=== PATIENT | female | born 1950 | race American Indian/Alaskan Native ===

== ENCOUNTER 2016-07-02 13:43 | Outpatient (CLI) | payer MEDICAID ==
--- NOTE | 2016-07-02 16:01 | Magnetic Resonance Report ---
MRI BRAIN WITH AND WITHOUT CONTRAST INDICATION: Severe headache. History of bleed. COMPARISON: 03/16/2014 MRI and 06/28/[address] FINDINGS: Multiplanar and multisequence MRI of the brain utilizing 12 ml Multihance intravenously again demonstrates age appropriate ventricles and sulci with mild bilateral parietal sulcal prominence/enlargement and along the vertex. No acute infarct, hemorrhage, mass effect or midline shift. No abnormal extra axial masses or fluid collections. Normal major intracranial vascular flow-voids. Approximately 9 mm focal heterogeneous enhancement/blush in the robbie on the left is stable without associated mass effect, also visible slightly T2 hyperintense precontrast as on axial series 6, image 9. Otherwise normal posterior fossa with symmetric seventh and eighth nerve complexes and preserved basilar cisterns. Unremarkable eye globes. Mild nasal septal deviation. Mild, left more than right, ethmoid and maxillary sinusitis may be present. Otherwise clear imaged paranasal sinuses and mastoid air cells. Normal midline structures without evidence of Chiari malformation. 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 Thank you for the opportunity to participate in this patient's care.
== END 2016-07-02 13:44 | disposition home or self-care (01) ==
LOC: MRI 13:43
PROVIDERS: ATTEND Internal Medicine Hematology & Oncology
DX: C50.411 Malignant neoplasm of upper-outer quadrant of right female breast (principal); R51 Headache; M25.512 Pain in left shoulder; J34.2 Deviated nasal septum; J32.0 Chronic maxillary sinusitis; J32.2 Chronic ethmoidal sinusitis
CPT/HCPCS: 70553; A9577

== ENCOUNTER 2017-01-13 09:07 | Emergency (ER) | payer OTHER, MEDICAID ==
--- NOTE | 2017-01-13 09:48 | XRay Report ---
ROUTINE CHEST, TWO VIEWS: HISTORY: chest pain. The trachea, heart, mediastinal contour, lung salcido and bony thorax are unremarkable. IMPRESSION: Unremarkable chest x-ray.
[2017-01-13 12:31] VITALS: BP 117/71
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
[2017-01-13] MEDS ORDERED: TYLENOL PO ONE (13:31)
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
[2017-01-13] MEDS ORDERED: NAPROSYN PO ONE (14:30)
== END 2017-01-13 14:26 | disposition home or self-care (01) ==
LOC: ED 09:07
DX: G44.319 Acute post-traumatic headache, not intractable (principal); M25.512 Pain in left shoulder; Z85.3 Personal history of malignant neoplasm of breast; E80.0 Hereditary erythropoietic porphyria; Z88.8 Allergy status to other drugs, medicaments and biological substances; V89.2XXA Person injured in unspecified motor-vehicle accident, traffic, initial encounter; Y92.488 Other paved roadways as the place of occurrence of the external cause; Y93.89 Activity, other specified; Y99.9 Unspecified external cause status
CPT/HCPCS: 70450; 71020

== ENCOUNTER 2017-03-08 09:21 | Outpatient (CLI) | payer MEDICAID ==
[2017-03-08 09:47] LABS: Basophils % (Auto) 0.8 % (0.0-1.8); Hematocrit 40.5 % (30.3-42.9); Hemoglobin 13.2 gm/dl (10.1-14.3); Mean Corpuscular HGB Conc 33 % (30-34); Mean Corpuscular Hemoglobin 27 pg (28-32); Mean Corpuscular Volume 83 fl (79-97); Platelet Count 319 K/mm3 (140-440); Red Blood Count 4.86 M/mm3 (3.65-5.03); Red Cell Distribution Width 14.7 % (13.2-15.2); White Blood Count 4.2 K/mm3 (4.5-11.0)
[2017-03-08 10:08] LABS: Alanine Aminotransferase 20 units/L (7-56); Albumin 4.3 g/dL (3.9-5); Albumin/Globulin Ratio 1.4 %; Alkaline Phosphatase 83 units/L (35-129); Anion Gap 18 mmol/L; BUN/Creatinine Ratio 13; Blood Urea Nitrogen 8 mg/dL (7-17); Calcium 9.1 mg/dL (8.4-10.2); Carbon Dioxide 30 mmol/L (22-30); Chloride 96.1 mmol/L (98-107); Cholesterol 156 mg/dL (50-199); Glucose 113 mg/dL (65-100); HDL Cholesterol 53 mg/dL (40-59); LDL Cholesterol,Direct 84 mg/dL (50-130); Potassium 3.6 mmol/L (3.6-5.0); Sodium 140 mmol/L (137-145); Total Protein 7.3 g/dL (6.3-8.2); Triglycerides 95 mg/dL (2-149)
[2017-03-15 13:27] LABS: Vitamin D, 25-OH, Total 50 ng/mL (30-100)
== END 2017-03-08 09:22 | disposition home or self-care (01) ==
LOC: LAB 09:21
DX: E11.42 Type 2 diabetes mellitus with diabetic polyneuropathy (principal); I10 Essential (primary) hypertension; E55.9 Vitamin D deficiency, unspecified; E78.2 Mixed hyperlipidemia; Z79.899 Other long term (current) drug therapy
CPT/HCPCS: 36415; 80053; 80061; 82306; 83036; 85025

== ENCOUNTER 2018-08-07 09:07 | Observation (INO) | payer MEDICAID, MEDICARE, SELFPAY ==
--- NOTE | 2018-08-07 09:34 | Emergency Department Report ---
HPI - General Chief Complaint: Allergic Reaction Time Seen by Provider: 08/07/18 09:34 - HPI HPI: 68-year-old female with a past medical history of DVT, hypertension, and breast cancer currently in remission since the hospital with allergic reaction 2 days. 2 nights ago patient developed hives. Last night she developed swelling to her lip and right side of her face. Patient has taken Benadryl the last 2 nights. She denies shortness of breath, wheezing, tongue swelling, voice changes, or difficulty speaking. She states she has had shrimp and seafood the last 2 nights but denies a previous allergy to seafood. She is also on losartan for hypertension and denies a previous history of angioedema. ED Past Medical Hx - Past Medical History Previous Medical History?: Yes Hx Hypertension: Yes Hx CVA: No Hx Deep Vein Thrombosis: Yes Hx Psychiatric Treatment: No Additional medical history: breast cancer, high cholesterol - Surgical History Past Surgical History?: Yes Hx Breast Surgery: Yes (BR BX W/BX OF LYMPH NODES 2013;) Additional Surgical History: bilateral mastectomy - Social History Smoking Status: Never Smoker Substance Use Type: None - Medications Home Medications: Home Medications Medication Instructions Recorded Confirmed Last Taken Type Gabapentin 300 mg PO BID 10/12/13 01/13/17 01/12/17 History Simvastatin 40 mg PO DAILY 10/12/13 01/13/17 12/12/13 18:30 History HYDROcodone/APAP 5-325 [[place] 1 each PO Q4HR PRN #20 tablet 12/13/13 Unknown Rx 5/325] Acetaminophen 500 mg PO Q6HR PRN #20 tablet 01/13/17 Unknown Rx Cyclobenzaprine HCl [Flexeril 5 MG 5 mg PO TID PRN #20 tab 01/13/17 Unknown Rx TAB] Furosemide [Lasix] 40 mg PO 01/13/17 01/12/17 History ED Review of Systems ROS: Stated complaint: ALLERGIC REACTION Other details as noted in HPI Comment: All other systems reviewed and negative Physical Exam - Physical Exam Vital Signs: Vital Signs 08/07/18 08/07/18 09:25 09:27 Temperature 98.0 F 98.2 F Pulse Rate 91 H 90 Respiratory 16 16 Rate Blood Pressure 127/84 Blood Pressure 127/64 [Left] O2 Sat by Pulse 97 Oximetry Physical Exam: General: No limitations, patient is alert in no acute distress Head exam: Atraumatic, normocephalic Eyes exam: Normal appearance, pupils equal reactive to light, extraocular movements intact ENT: Moist mucous membrane, right sided upper and lower lip swelling with some mild swelling to the right cheek area of the face. No tongue swelling, normal posterior pharynx Neck exam: Normal inspection, full range of motion, no meningismus nontender Respiratory exam: Clear to auscultation bilateral, no wheezes, rales, crackles Cardiovascular: Normal rate and rhythm, normal heart sounds Abdomen: Soft, nondistended, and nontender, with normal bowel sounds, no rebound, or guarding Extremity: Full range of motion normal inspection no deformity Back: Normal Inspection, full range of motion, no tenderness Neurologic: Alert, oriented x3, cranial nerves intact, no motor or sensory deficit Psychiatric: normal affect, normal mood Skin: Warm, dry, intact, no rash ED Course Vital Signs 08/07/18 08/07/18 09:25 09:27 Temperature 98.0 F 98.2 F Pulse Rate 91 H 90 Respiratory 16 16 Rate Blood Pressure 127/84 Blood Pressure 127/64 [Left] O2 Sat by Pulse 97 Oximetry ED Medical Decision Making - Medical Decision Making plan to admit pt to hospital for obs due to persistant and unchanged lip and facial swelling despite meds ddx angioedema vs allergic reaction basic labs ordered and pending hospitalist informed to admit - Differential Diagnosis angioedema, allergic reaction Critical Care Time: No Critical care attestation.: If time is entered above; I have spent that time in minutes in the direct care of this critically ill patient, excluding procedure time. ED Disposition Clinical Impression: Angioedema Disposition: OP ADMIT IP TO THIS HOSP Is pt being admited?: Yes Condition: Stable Time of Disposition: 13:44
[2018-08-07] MEDS ORDERED: BENADRYL IV ONE (09:38)
[2018-08-07] MEDS ORDERED: SOLU-Medrol IV ONE (09:39)
[2018-08-07] MEDS ORDERED: PEPCID IV ONE (09:39)
--- NOTE | 2018-08-07 14:07 | History and Physical Report ---
History of Present Illness Chief complaint: My face and lips are swollen History of present illness: 68 YO Female with HTN, BrCa, DVT, HLD presents to ED for evaluation. Pt states that she has experienced swelling of her lips and the right side of her face. Pt states that she developed "hives" 2 days ago shortly after eating seafood, Pt treated her symptoms with OTC Benadryl. Pt also reports the onset of Lip and fac ial swelling overnight with persistent symptoms over the same time frame. Pt transported to [facility] in private vehicle. Pt seen and evaluated in ED and found to have Angioedema. Pt admitted to [facility] and treated with IV steroid therapy. Pt denies fever, chills, CP, Palpitations, shortness of breath, tongue swelling, difficulty swallowing, drooling, voice changes, cough, syncope, skin rash, or recent ill contacts. Past History Past Medical History: cancer, DVT, hypertension, hyperlipidemia Past Surgical History: mastectomy, Other (Lymph node biopsy) Social history: , lives with family. denies: smoking, alcohol abuse, prescription drug abuse Family history: hypertension Medications and Allergies Allergies Allergy/AdvReac Type Severity Reaction Status Date / Time zinc oxide Allergy Mild Rash Verified 07/02/16 13:44 tramadol Allergy Seizure Verified 01/13/17 10:00 Home Medications Medication Instructions Recorded Confirmed Last Taken Type Simvastatin 40 mg PO DAILY 10/12/13 08/07/18 12/12/13 18:30 History Losartan/Hydrochlorothiazide 1 tab PO DAILY 08/07/18 08/07/18 Unknown History [Losartan-Hctz 50-12.5 mg Tab] Lubiprostone (Nf) [Amitiza (Nf)] 24 mcg PO BID 08/07/18 08/07/18 Unknown History Metformin HCl 500 mg PO DAILY 08/07/18 08/07/18 Unknown History Review of Systems Constitutional: no weight loss, no weight gain, no fever, no anorexia, no fatigue, no weakness, no malaise Ears, nose, mouth and throat: other (Lip and facial swelling), no ear pain, no ear discharge, no tinnitis, no decreased hearing, no sinus pressure, no hoarseness, no sore throat Breasts: other (B Mastectomy) Cardiovascular: no chest pain, no orthopnea, no palpitations, no rapid/irregular heart beat, no edema Respiratory: no cough, no cough with sputum, no excessive sputum, no hemoptysis Gastrointestinal: no abdominal pain, no nausea, no vomiting, no change in bowel habits, no hematemesis Genitourinary Female: no pelvic pain, no flank pain, no menorrhagia, no dysuria, no urinary frequency, no urgency Rectal: no pain, no incontinence, no bleeding Musculoskeletal: no neck stiffness, no neck pain, no arm numbness/tingling, no low back pain, no shooting leg pain Integumentary: no rash, no redness, no sores, no wounds, no jaundice, no boils Neurological: no head injury, no transient paralysis, no paralysis, no weakness, no numbness, no seizures, no syncope, no ataxia Psychiatric: no anxiety, no memory loss, no change in sleep habits, no sleep disturbances, no insomnia, no hypersomnia, no change in appetite, no suicidal ideation Endocrine: no cold intolerance, no heat intolerance, no polyphagia, no excessive thirst, no polydipsia, no polyuria, no nocturia, no excessive sweating, no flushing Hematologic/Lymphatic: no easy bruising, no easy bleeding, no lymphadenopathy, no lymphedema Allergic/Immunologic: no urticaria, no allergic rhinitis, no wheezing, no persistent infections, no anaphylaxis, no angioedema Exam - Constitutional Vitals: Temp Pulse Resp BP Pulse Ox 98.2 F 81 15 123/64 98 08/07/18 09:27 08/07/18 13:30 08/07/18 13:30 08/07/18 13:30 08/07/18 13:15 General appearance: Present: mild distress - EENT Eyes: Present: PERRL ENT: hearing intact, clear oral mucosa, other (lip swelling, facial swelling) - Neck Neck: Present: supple, normal ROM - Respiratory Respiratory effort: normal Respiratory: bilateral: CTA - Cardiovascular Heart Sounds: Present: S1 & S2. Absent: rub, click - Extremities Extremities: pulses symmetrical, No edema Peripheral Pulses: within normal limits - Abdominal General gastrointestinal: Present: soft, non-tender, non-distended, normal bowel sounds Female genitourinary: Present: normal - Integumentary Integumentary: Present: clear, warm, dry - Musculoskeletal Musculoskeletal: gait normal, strength equal bilaterally - Psychiatric Psychiatric: appropriate mood/affect, intact judgment & insight - Neurologic Neurologic: CNII-XII intact, moves all extremities Results - Labs CBC & Chem 7: 08/07/18 14:33 08/07/18 14:33 Assessment and Plan - Patient Problems (1) Angioedema Current Visit: Yes Status: Acute Qualifiers: Encounter type: initial encounter Qualified Code(s): T78.3XXA - Ang ioneurotic edema, initial encounter Plan to address problem: IV steroid therpay, supportive care, serial physical exam, aspiration precautions, advance diet at tolerated (2) HLD (hyperlipidemia) Current Visit: Yes Status: Acute Qualifiers: Hyperlipidemia type: mixed hyperlipidemia Qualified Code(s): E78.2 - Mixed hyperlipidemia Plan to address problem: Statin therpay, low cholesterol diet, (3) GERD (gastroesophageal reflux disease) Current Visit: Yes Status: Acute Qualifiers: Esophagitis presence: without esophagitis Qualified Code(s): K21.9 - Gastro-esophageal reflux disease without esophagitis Plan to address problem: PPI therapy, supportive care, outpatient GI F/U for age appropriate screening. (4) DVT prophylaxis Current Visit: Yes Status: Acute Plan to address problem: SCD to BLE while in bed, prophylactic lovenox
[2018-08-07] MEDS ORDERED: NON-FORMULARY (Cyclobenzaprine Hcl [Flexeril 5 Mg Tab] 5 MG) PO PRN (14:12)
[2018-08-07] MEDS ORDERED: NORCO 5/325 PO PRN (14:12)
[2018-08-07] MEDS ORDERED: FLEXERIL PO PRN (14:16)
[2018-08-07] MEDS ORDERED: PROVENTIL IH PRN (14:22)
[2018-08-07] MEDS ORDERED: TYLENOL PO PRN (14:22)
[2018-08-07] MEDS ORDERED: ZOFRAN IV PRN (14:22)
[2018-08-07] MEDS ORDERED: SODIUM CHLORIDE FLUSH SYRINGE 10 ML IV PRN (14:22)
[2018-08-07 14:48] LABS: Hematocrit 44.4 % (30.3-42.9); Hemoglobin 14.4 gm/dl (10.1-14.3); Mean Corpuscular HGB Conc 32 % (30-34); Mean Corpuscular Volume 85 fl (79-97); Platelet Count 334 K/mm3 (140-440); Red Blood Count 5.25 M/mm3 (3.65-5.03); Red Cell Distribution Width 15.2 % (13.2-15.2)
[2018-08-07 14:58] LABS: Basophils % (Auto) 0.2 % (0.0-1.8); Eosinophils % (Auto) 0.1 % (0.0-4.3); Lymphocytes # (Auto) 0.8 K/mm3 (1.2-5.4); Lymphocytes % (Auto) 10.8 % (13.4-35.0); Monocytes # (Auto) 0.1 K/mm3 (0.0-0.8); Monocytes % (Auto) 0.9 % (0.0-7.3)
[2018-08-07 15:07] LABS: BUN/Creatinine Ratio 18; Blood Urea Nitrogen 14 mg/dL (7-17); Calcium 10.1 mg/dL (8.4-10.2); Hemolysis Index 60
[2018-08-07] MEDS ORDERED: D50W (25GM) Syringe IV PRN (18:24)
[2018-08-07] MEDS: SOLU-Medrol IV SCH (21:47)
[2018-08-07] MEDS: SODIUM CHLORIDE FLUSH SYRINGE 10 ML IV SCH (21:48)
[2018-08-07] MEDS ORDERED: LOVENOX SUB-Q SCH (22:00)
[2018-08-07] MEDS ORDERED: PRAVACHOL PO SCH (22:00)
[2018-08-07] MEDS ORDERED: NON-FORMULARY (Lubiprostone (Nf) 24 MCG) PO SCH (22:00)
[2018-08-07] MEDS: HumaLOG SUB-Q SCH (23:00)
[2018-08-08] MEDS: SOLU-Medrol IV SCH (09:11)
[2018-08-08] MEDS: HumaLOG SUB-Q SCH ×2 (09:12→12:49)
[2018-08-08] MEDS: SODIUM CHLORIDE FLUSH SYRINGE 10 ML IV SCH (09:12)
[2018-08-08 09:13] VITALS: BP 122/57
[2018-08-08] MEDS ORDERED: NON-FORMULARY (Simvastatin [Simvastatin] 40 MG) PO SCH (10:00)
[2018-08-08] MEDS ORDERED: NORVASC PO SCH (10:00)
[2018-08-08 10:42] LABS: BUN/Creatinine Ratio 20; Blood Urea Nitrogen 12 mg/dL (7-17); Calcium 9.2 mg/dL (8.4-10.2); Hemolysis Index 7
--- NOTE | 2018-08-08 13:00 | Discharge Summary ---
Providers - Providers Date of Admission: 08/07/18 14:23 Date of discharge: 08/08/18 Attending physician: JOSE EDWARDS [facility] Condition: Stable Hospital course: 68 YO Female with HTN, BrCa, DVT, HLD presents to ED for evaluation of sudden onset of swelling of her lips and the right side of her face, developed "hives" 2 days ago shortly after eating seafood. Patient treated her symptoms with OTC Benadryl, but no improvement of symptom. Patient seen and evaluated in ED and found to have Angioedema. Pt admitted to [facility] and treated with IV steroid therapy as needed benadryl. Her symptom improved and was able to tolerate oral diet. patient was then discharged home in stable condition. Discharge diagnosis: (1) Angioedema due to seafood, resolved (2) HLD (hyperlipidemia) Statin therpay, low cholesterol diet, (3) HTN, cont home meds (4) DVT prophylaxis SCD to BLE while in bed, prophylactic lovenox Disposition: - TO HOME OR SELFCARE Time spent for discharge: 34 minutes Core Measure Documentation - Palliative Care Palliative Care/ Comfort Measures: Not Applicable - Core Measures Any of the following diagnoses?: none Exam - Constitutional Vitals: Temp Pulse Resp BP Pulse Ox 98.9 F 82 20 122/57 95 08/08/18 08:05 08/08/18 11:02 08/08/18 08:05 08/08/18 09:11 08/08/18 10:00 General appearance: Present: no acute distress, well-nourished - EENT Eyes: Present: PERRL ENT: hearing intact, clear oral mucosa - Neck Neck: Present: supple, normal ROM - Respiratory Respiratory effort: normal Respiratory: bilateral: CTA - Cardiovascular Heart Sounds: Present: S1 & S2. Absent: rub, click - Extremities Extremities: pulses symmetrical, No edema Peripheral Pulses: within normal limits - Abdominal General gastrointestinal: Present: soft, non-tender, non-distended, normal bowel sounds - Integumentary Integumentary: Present: clear, warm, dry - Musculoskeletal Musculoskeletal: gait normal, strength equal bilaterally - Psychiatric Psychiatric: appropriate mood/affect, intact judgment & insight - Neurologic Neurologic: CNII-XII intact, moves all extremities Plan Activity: advance as tolerated Weight Bearing Status: Weight Bear as Tolerated Diet: low fat, low salt Special Instructions: record daily BP diary [facility] [place] [facility]TON[facility] [Primary Care Provider] - 7 Days Prescriptions: diphenhydrAMINE [Benadryl CAP] 25 mg PO Q8HR PRN #10 capsule PRN Reason: Allergic Reaction predniSONE [Deltasone] 50 mg PO QDAY #10 tab
== END 2018-08-08 13:30 | disposition home or self-care (01) ==
LOC: ED 09:07 → 2B-ACE 14:23
PROVIDERS: ADMIT Internal Medicine; ATTEND Internal Medicine
DX: T78.3XXA Angioneurotic edema, initial encounter (principal); E78.5 Hyperlipidemia, unspecified; K21.9 Gastro-esophageal reflux disease without esophagitis; I10 Essential (primary) hypertension; Z85.3 Personal history of malignant neoplasm of breast; Z90.12 Acquired absence of left breast and nipple; Z82.49 Family history of ischemic heart disease and other diseases of the circulatory system; E78.00 Pure hypercholesterolemia, unspecified; Z98.890 Other specified postprocedural states; Z79.899 Other long term (current) drug therapy
CPT/HCPCS: 36415; 80048; 82962; 85007; 85025; 96372; 96374; 96375; 96376; 99284; A9270; G0378; J1200; J1650; J2920; J2930; J1815

== ENCOUNTER 2021-08-15 14:49 | Outpatient (CLI) | payer MEDICARE ==
--- NOTE | 2021-08-15 15:32 | XRay Report ---
ABDOMEN 1 VIEW(S) INDICATION / CLINICAL INFORMATION: K59.09 CHRONIC CONSTIPATION. Patient took Sitz markers on Wednesday. COMPARISON: None available. FINDINGS: TUBES / LINES: None. BOWEL GAS PATTERN: There is moderate fecal retention throughout the colon. 7 markers are identified n ear the splenic flexure in the distal transverse colon and proximal descending colon. One Sitzm marke r is identified in the sigmoid colon. FREE AIR / EXTRALUMINAL GAS: None seen. ADDITIONAL FINDINGS: There are small and large calcified fibroids in the pelvis. IMPRESSION: Moderate constipation. Markers as described. Signer Name: Doc Vega Jr, MD Signed: 08/15/2021 3:28 PM Workstation Name: [email or web address]
== END 2021-08-15 14:50 | disposition home or self-care (01) ==
LOC: XRAY 14:49
PROVIDERS: ATTEND Internal Medicine Gastroenterology
DX: K59.00 Constipation, unspecified (principal); D25.9 Leiomyoma of uterus, unspecified
CPT/HCPCS: 74018